=== PATIENT | male | born 1975 | race African-American/Black ===

== ENCOUNTER 2019-10-24 23:20 | Inpatient (IN) | payer MEDICAID ==
[~2019-10-24] VITALS: Ht 165.1 cm; Wt 81.6 kg
--- NOTE | 2019-10-24 23:35 | NUR ---
Patient BIB [facility] from home for c/o severe abdominal pain and nausea. Patient upon arrival vomiting, c/o genaralized weakness, abdominal pain and hyperventalating. A/Ox3 and states has had polyuria with frequent thirst and abdominal pain that started 3 days ago.
[2019-10-24] MEDS ORDERED: ONDANSETRON 4 MG/2 ML VIAL IV ONE (23:45)
[2019-10-24] MEDS ORDERED: ONDANSETRON 4 MG/2 ML VIAL ONE (23:46)
[2019-10-24 23:48] LABS: BASOPHILS # (AUTO) 0.1 K/uL (0.0-8.0); EOSINOPHILS % (AUTO) 0.2 % (0.0-7.0); HEMOGLOBIN 19.4 g/dL (12.5-16.3); LYMPHOCYTES # (AUTO) 1.4 K/uL (20.0-40.0)
[2019-10-24] MEDS ORDERED: METF-494 PO (23:50)
[2019-10-24] MEDS ORDERED: ATOR10TA PO (23:50)
[2019-10-24 23:51] LABS: ABG BASE EXCESS -18.2 mmol/L; ABG HCO3 5.2 mmol/L; ABG PCO2 12.4 mmHg (35.0-45.0); ABG PH 7.242 (7.350-7.450); ABG PO2 104.4 mmHg (75.0-100.0); ABG SITE RIGHT RADIAL; ABG TOTAL HEMOGLOBIN 20.1 G/dL (13.5-18.0); COHb 0.2 % (0.5-1.5); MetHb 0.4 % (0.0-1.5); O2Hb 96.2 % (94.0-97.0); VENT MODE Room Air
--- NOTE | 2019-10-24 23:57 | NUR ---
Patient out of unit for ct scan via gurny.
[2019-10-24 23:58] LABS: MEAN CORPUSCULAR HGB CONC 32 g/dL (32.5-36.3)
[2019-10-25] VITALS (15 sets, daily range): BP systolic 112–144; BP diastolic 63–92
[2019-10-25] LABS: HEMATOCRIT 60.4 % (36.7-47.1); LYMPHOCYTES % (AUTO) 13.3 % (20.5-51.5); MEAN CORPUSCULAR HEMOGLOBIN 29.1 uug (23.8-33.4); MEAN CORPUSCULAR VOLUME 90.6 fL (73.0-96.2); NEUTROPHILS % (AUTO) 80.9 % (38.5-71.5); PLATELET COUNT (AUTO) 383 K/uL (152-348); RED BLOOD CELL COUNT(AUTO) 6.67 MIL/uL (4.06-5.63); WHITE BLOOD COUNT (AUTO) 10.7 K/uL (3.6-10.2)
[2019-10-25 00:01] LABS: BASOPHILS % (AUTO) 0.7 % (0.0-2.0); MONOCYTES # (AUTO) 0.5 K/uL (2.0-10.0); MONOCYTES % (AUTO) 4.9 % (0.0-11.0); NEUTROPHILS # (AUTO) 8.6 K/uL (1.8-8.9)
--- NOTE | 2019-10-25 00:07 | NUR ---
Patient back from ct scan with no distress noted.
[2019-10-25 00:11] LABS: BILIRUBIN,DIRECT 0.1 mg/dL (0.0-0.2); BILIRUBIN,TOTAL 0.6 mg/dL (0.2-1.0); POTASSIUM 4.6 mmol/L (3.5-5.1); TOTAL PROTEIN, SERUM 10.2 g/dL (6.4-8.2)
[2019-10-25 00:15] LABS: PHOSPHOROUS 9.7 mg/dL (2.5-4.9)
[2019-10-25] MEDS ORDERED: IV 0.9% SODIUM CHLORID+ 20 KCL 1,000 ML IV PRN (00:26)
[2019-10-25 00:48] LABS: *BLOOD, URINE 2+ (NEGATIVE); *CLARITY,URINE CLEAR (CLEAR); *COLOR,URINE YELLOW (YELLOW); *KETONES,URINE 3+ (NEGATIVE); *UROBILINOGEN,URINE 0.2 E.U./dl (NORMAL); LEUKOCYTE ESTERASE ,URINE NEGATIVE (NEGATIVE); NITRITE, URINE NEGATIVE (NEGATIVE)
[2019-10-25 00:52] LABS: *BILIRUBIN,URIN 1+ (NEGATIVE); UGLUCOSE 2+ (NEGATIVE)
[2019-10-25 00:55] LABS: LYMPHOCYTES % (MANUAL) 15 % (20-40); MONOCYTES % (MANUAL) 5 % (2-10); NEUTROPHILS % (MANUAL) 80 % (42-75)
[2019-10-25 00:59] LABS: BACTERIA,URINE FEW /HPF (NONE SEEN); SQUAMOUS EPITHELIAL CELL,UR FEW /HPF (NONE SEEN); WBC,URINE 0-3 /HPF (0-3)
[2019-10-25 01:14] LABS: CREATININE 2.7 mg/dL (0.6-1.3); POTASSIUM 5.1 mmol/L (3.5-5.1)
--- NOTE | 2019-10-25 01:20 | NUR ---
DR DAVID SPEAKING WITH [facility] DIRECTOR FIELD SERVICES AMY BLAND NP.
[2019-10-25] MEDS ORDERED: MAGNESIUM HYDROXIDE 30 ML LIQUID UDC PO PRN ×2 (01:30→09:15)
[2019-10-25] MEDS ORDERED: HYDROCODONE/APAP 5-325MG TABLET PO PRN (01:30)
[2019-10-25] MEDS ORDERED: ONDANSETRON 4 MG/2 ML VIAL IV PRN (01:30)
[2019-10-25] MEDS ORDERED: ACETAMINOPHEN 325 MG TABLET PO PRN (01:30)
[2019-10-25] MEDS ORDERED: Z GUARD REMEDY PASTE 57 GM TUBE TOP PRN (01:30)
[2019-10-25] MEDS ORDERED: INSULIN REGULAR, HUMAN 300 UNIT/3 ML VIAL ONE (01:31)
--- NOTE | 2019-10-25 01:50 | NUR ---
MIXED 100 UNITS OF HUMULIN R INSULING INTO 100ML OF NS FOR INSULING DRIP. CO CHECKED DOSE WITH BABITA CONRAD.
[2019-10-25] MEDS ORDERED: INSULIN REGULAR, HUMAN 100 UNITS in IV NORMAL SALINE 100 ML IV ONE ×2 (02:00)
--- NOTE | 2019-10-25 02:00 | NUR ---
No nurse available in the CCU unit at this time. Patient will be admitted at change of shift at 0700 per warehouse shipping clerk
--- NOTE | 2019-10-25 02:00 | NUR ---
Started insulin drip at 8units/hr as ordered by Dr Munoz.
--- NOTE | 2019-10-25 02:04 | NUR ---
STARTED INSULIN DRIP AT 8UNITS/HR PER DKA PROTOCOL. CO CHECKED DRIP WITH BABITA CONRAD.
[2019-10-25 02:56] LABS: CREATININE 2.5 mg/dL (0.6-1.3); MAGNESIUM 2.8 mg/dL (1.8-2.4); PHOSPHOROUS 7.5 mg/dL (2.5-4.9); POTASSIUM 5.4 mmol/L (3.5-5.1)
[2019-10-25] MEDS ORDERED: IV NORMAL SALINE 1000 ML BAG IV ONE ×2 (03:00→04:30)
--- NOTE | 2019-10-25 03:10 | NUR ---
INFORMED DR DAVID OF [facility] READING HI. ORDERS RECIEVED AND CARRIED OUT.
--- NOTE | 2019-10-25 03:11 | NUR ---
INSULIN DRIP WILL REMAIN AT 8UNITS/HR PER DR FRANKIE MENESES
[2019-10-25] MEDS ORDERED: INSULIN REGULAR, HUMAN 10 UNIT in IV NORMAL SALINE 100 ML IV ONE ×2 (03:30)
[2019-10-25 03:57] LABS: ABG BASE EXCESS -17.7 mmol/L; ABG HCO3 5.5 mmol/L; ABG PCO2 12.5 mmHg (35.0-45.0); ABG PO2 101.4 mmHg (75.0-100.0); ABG SITE LEFT RADIAL; ABG TOTAL HEMOGLOBIN 19.1 G/dL (13.5-18.0); COHb 0.2 % (0.5-1.5); MetHb 0.4 % (0.0-1.5); O2Hb 96.4 % (94.0-97.0); VENT MODE Room Air
[2019-10-25 04:45] LABS: CREATININE 2.3 mg/dL (0.6-1.3); MAGNESIUM 2.6 mg/dL (1.8-2.4); PHOSPHOROUS 4.1 mg/dL (2.5-4.9); POTASSIUM 4.8 mmol/L (3.5-5.1)
--- NOTE | 2019-10-25 06:02 | NUR ---
Patient Blood Sugar is 457 via Accu check. Insulin drip lowered to 5units/HR, co check with Carrillo CONRAD.
[2019-10-25 07:15] LABS: POTASSIUM 5.2 mmol/L (3.5-5.1)
[2019-10-25 07:19] LABS: MAGNESIUM 2.6 mg/dL (1.8-2.4); PHOSPHOROUS 2.2 mg/dL (2.5-4.9)
--- NOTE | 2019-10-25 07:38 | NUR ---
transfered pt to floor in stable condition.
[2019-10-25] MEDS: PANTOPRAZOLE SODIUM 40 MG VIAL IV SCH (08:45)
[2019-10-25] MEDS: IV NS 1000 ML 1,000 ML IV PRN ×2 (08:45→17:09)
[2019-10-25] MEDS: INSULIN REGULAR, HUMAN 100 UNIT in IV NORMAL SALINE 99 ML IV PRN ×6 (09:04→20:40)
[2019-10-25] MEDS: BLOOD SUGAR DIAGNOSTIC 1 EACH STRIP VI SCH ×15 (09:14→23:28)
--- NOTE | 2019-10-25 18:48 | NUR ---
Attending physician, in the unit to see and examine patient,. full report given orders to start pt. on CCHO diet and continue with insulin drip.
--- NOTE | 2019-10-25 19:10 | NUR ---
received patient awake , oriented , on insulin drip at 2units , fs every 1 hour , on RA, continent using urinal , iv right arm 20 ga , intact
[2019-10-26] VITALS (23 sets, daily range): BP systolic 114–173; BP diastolic 48–131
--- NOTE | 2019-10-26 | NUR ---
awake , oriented , able to follow commnad , denies distress , no n//v noted
[2019-10-26] MEDS: BLOOD SUGAR DIAGNOSTIC 1 EACH STRIP VI SCH ×17 (00:28→21:00)
[2019-10-26] MEDS: INSULIN REGULAR, HUMAN 100 UNIT in IV NORMAL SALINE 99 ML IV PRN ×4 (01:49→09:30)
[2019-10-26] MEDS: IV NS 1000 ML 1,000 ML IV PRN (03:32)
[2019-10-26 05:27] LABS: BASOPHILS # (AUTO) 0.1 K/uL (0.0-8.0); BASOPHILS % (AUTO) 1.1 % (0.0-2.0); EOSINOPHILS % (AUTO) 0.2 % (0.0-7.0); HEMATOCRIT 52.3 % (36.7-47.1); HEMOGLOBIN 17.4 g/dL (12.5-16.3); LYMPHOCYTES # (AUTO) 2.3 K/uL (20.0-40.0); LYMPHOCYTES % (AUTO) 23.7 % (20.5-51.5); MEAN CORPUSCULAR HEMOGLOBIN 28.9 uug (23.8-33.4); MEAN CORPUSCULAR HGB CONC 33 g/dL (32.5-36.3); MEAN CORPUSCULAR VOLUME 86.8 fL (73.0-96.2); MONOCYTES # (AUTO) 0.9 K/uL (2.0-10.0); MONOCYTES % (AUTO) 9.7 % (0.0-11.0); NEUTROPHILS # (AUTO) 6.3 K/uL (1.8-8.9); NEUTROPHILS % (AUTO) 65.3 % (38.5-71.5); PLATELET COUNT (AUTO) 317 K/uL (152-348); RED BLOOD CELL COUNT(AUTO) 6.02 MIL/uL (4.06-5.63); WHITE BLOOD COUNT (AUTO) 9.7 K/uL (3.6-10.2)
[2019-10-26 05:39] LABS: ALANINE AMINOTRANSFERASE 54 U/L (16-63); ALKALINE PHOSPHATASE 118 U/L (50-136); ASPARTATE AMINOTRANSFERASE 31 U/L (15-37); BILIRUBIN,DIRECT 0.1 mg/dL (0.0-0.2); BILIRUBIN,TOTAL 0.4 mg/dL (0.2-1.0); CARBON DIOXIDE 17 mmol/L (21-32); CHLORIDE 121 mmol/L (98-107); CHOLESTEROL 330 mg/dL (<200); CREATININE 1.7 mg/dL (0.6-1.3); HDL CHOLESTEROL 56 mg/dL (40-60); MAGNESIUM 2.4 mg/dL (1.8-2.4); PHOSPHOROUS 1.7 mg/dL (2.5-4.9); POTASSIUM 3.7 mmol/L (3.5-5.1); TOTAL PROTEIN, SERUM 8.5 g/dL (6.4-8.2); TRIGLYCERIDES 427 MG/DL (30-150); UREA NITROGEN, BLOOD 24 mg/dL (7-18)
[2019-10-26 05:59] LABS: GLUCOSE 357 mg/dL (74-106)
[2019-10-26] MEDS ORDERED: glipiZIDE 5 MG TABLET PO SCH (07:30)
[2019-10-26] MEDS ORDERED: POTASSIUM PHOSPHATE MM 15 MMOL in IV NORMAL SALINE 250 ML IV ONE (07:30)
--- NOTE | 2019-10-26 07:30 | NUR ---
Received report from shift supervisor melting nurse, patient on insulin drip and IVF running at 120cc/hr. Reported sodium and potassium levels to Dr. Melendez, received orders and placed to pharmacy. patient in bed awake and alert, no distress noted at this time, Sinus tachycardia on the monitor, room air saturation above 95%. Bed in low position, side rails upx2, call light in reach.
[2019-10-26] MEDS: PANTOPRAZOLE SODIUM 40 MG VIAL IV SCH (08:30)
[2019-10-26] MEDS: IV 1/2NS 1000 ML 1,000 ML IV PRN (09:03)
[2019-10-26] MEDS ORDERED: glipiZIDE 5 MG TABLET PO ONE (09:38)
[2019-10-26] MEDS: FAMOTIDINE 20 MG TABLET PO SCH (11:40)
[2019-10-26] MEDS ORDERED: NOREPINEPHRINE BITARTRATE 8 MG in IV NORMAL SALINE 242 ML IV PRN (12:00)
[2019-10-26] MEDS ORDERED: PROPOFOL 100 ML IV PRN (12:00)
[2019-10-26] MEDS: glipiZIDE 10 MG TABLET PO SCH (16:14)
[2019-10-26] MEDS ORDERED: DEXTROSE 50% 50 ML DISP.SYRIN IV PRN (16:15)
--- NOTE | 2019-10-26 16:30 | NUR ---
D/C insulin drip as ordered, Glucose checked and insulin injection given subcutaneously.
--- NOTE | 2019-10-26 16:55 | NUR ---
Reported elevated BP to Dr. Melendez, patient is having heated conversation with brother, informed him that he may need to take BP med if his BP remains elevated.
--- NOTE | 2019-10-26 18:22 | NUR ---
Patient cooperative with care, no distress noted at this time. Patient is maintained on 1/2 NS IVF running at 80cc/hr. Room air, Sinus to sinus tach on the monitor. Tolerating liquids and meals. Bed in low position, side rails up x2, Call light in reach.
--- NOTE | 2019-10-26 19:00 | NUR ---
patient is awake , able to follow command , no distress , on RA , IV RUNNING 1/2 AT 80 ML , uses urinal
[2019-10-26] MEDS: ATORVASTATIN 40 MG TABLET PO SCH (20:26)
[2019-10-26] MEDS: EZETIMIBE 10 MG TABLET PO SCH (20:26)
[2019-10-26] MEDS: MUPIROCIN 2% OINT 22 GM TUBE NS SCH (21:00)
--- NOTE | 2019-10-26 21:00 | NUR ---
mahin from [facility] , called for covid results negative but postive for mrsa both nares
[2019-10-27] VITALS (11 sets, daily range): BP systolic 115–156; BP diastolic 57–105
--- NOTE | 2019-10-27 00:55 | NUR ---
patient lab levels being monitored , currently on 04/26 ns 80 ml , phosphate give 7/3 once Addendum: 10/27/19 at 0055 by RICHARD DEAL RN Amended: Wily added. Addendum: 10/27/19 at 0056 randy DEAL RN Amended: Wily romeo. Addendum: 10/27/19 at 0057 randy DEAL RN Amended: Links added. Addendum: 10/27/19 at 0057 by RICHARD DEAL RN Amended: Links added.
--- NOTE | 2019-10-27 00:56 | NUR ---
insulin drip was dc's , was placed on aggresive ac and hs insulin coverage , will be able to maintain bs level at acceptable , during hospitalization Addendum: 10/27/19 at 0056 by RICHARD DEAL RN Amended: Links added. Addendum: 10/27/19 at 7 by RICHARD DEAL RN Amended: Links added. Addendum: 10/27/19 at 7 by RICHARD DEAL RN Amended: Links added.
--- NOTE | 2019-10-27 00:57 | NUR ---
will maintain slowly back of appetite and will eat more 50 % of meal Addendum: 10/27/19 at 0057 by RICHARD DEAL RN Amended: Links added. Addendum: 10/27/19 at 0057 by RICHARD DEAL RN Amended: Links added.
[2019-10-27] MEDS: IV 1/2NS 1000 ML 1,000 ML IV PRN ×3 (01:10→20:29)
[2019-10-27] MEDS: INSULIN REGULAR, HUMAN 300 UNITS/3 ML VIAL SQ PRN ×2 (01:10→07:01)
[2019-10-27 05:35] LABS: BASOPHILS # (AUTO) 0.1 K/uL (0.0-8.0); BASOPHILS % (AUTO) 1.3 % (0.0-2.0); EOSINOPHILS # (AUTO) 0.1 K/uL (0.0-0.7); EOSINOPHILS % (AUTO) 1.7 % (0.0-7.0); HEMOGLOBIN 15.7 g/dL (12.5-16.3); LYMPHOCYTES # (AUTO) 2.8 K/uL (20.0-40.0); LYMPHOCYTES % (AUTO) 36.1 % (20.5-51.5); MEAN CORPUSCULAR HEMOGLOBIN 28.9 uug (23.8-33.4); MEAN CORPUSCULAR HGB CONC 33 g/dL (32.5-36.3); MEAN CORPUSCULAR VOLUME 86.4 fL (73.0-96.2); MONOCYTES # (AUTO) 0.7 K/uL (2.0-10.0); MONOCYTES % (AUTO) 9.2 % (0.0-11.0); NEUTROPHILS % (AUTO) 51.7 % (38.5-71.5); PLATELET COUNT (AUTO) 273 K/uL (152-348); RED BLOOD CELL COUNT(AUTO) 5.44 MIL/uL (4.06-5.63); WHITE BLOOD COUNT (AUTO) 7.7 K/uL (3.6-10.2)
[2019-10-27 05:48] LABS: CREATININE 1.6 mg/dL (0.6-1.3); MAGNESIUM 1.9 mg/dL (1.8-2.4); POTASSIUM 3.8 mmol/L (3.5-5.1)
--- NOTE | 2019-10-27 05:49 | NUR ---
report given to Will RN , patient history , diagnosis , medications given and radiology results
--- NOTE | 2019-10-27 06:00 | NUR ---
ANTOINE Rollins , BREAKER OILER WAS CALLED FOR TRANSFER ORDER , RECEIVED ORDER TO FOLLOW UP WITH DR HUNTER
--- NOTE | 2019-10-27 06:30 | NUR ---
MD AWARE OF BLOOD SUGAR RESULTS
--- NOTE | 2019-10-27 06:30 | NUR ---
DR HUNTER WAS CALLED WAITING FOR CALL BACK , INTERIOR DESIGN PROFESSIONAL AWARE
--- NOTE | 2019-10-27 06:54 | NUR ---
AWAKE ORIENTED , DENIES DISTRESS , ON RA , IV 1/2 NS RUNNING AT LEFT FOREARM INTACT AT 80 ML
[2019-10-27] MEDS: BLOOD SUGAR DIAGNOSTIC 1 EACH STRIP VI SCH ×4 (06:59→20:31)
--- NOTE | 2019-10-27 07:30 | NUR ---
RECEIVED PATIENT BY W/CHAIR TRANSFER FROM CCU TO ROOM 304 PLACED INTO BED FIXED AND MADE COMFORTABLE PATIENT IS ALERT AND ORIENTED DENIES PAIN OR DISCOMFORTS AT THIS TIME ORIENTED TO ROOM AND UNIT PROTOCOL CALL LIGHTS AND PERSONAL BELONGINGS ARE WITHIN EASY REACH MADE COMFORTABLE WILL CONTINUE TO OBSERVE.
[2019-10-27] MEDS: ASPIRIN EC 81 MG TABLET.DR PO SCH (08:13)
[2019-10-27] MEDS: FAMOTIDINE 20 MG TABLET PO SCH (08:13)
[2019-10-27] MEDS: glipiZIDE 10 MG TABLET PO SCH ×2 (08:13→16:49)
[2019-10-27] MEDS: MUPIROCIN 2% OINT 22 GM TUBE NS SCH ×2 (08:15→20:38)
--- NOTE | 2019-10-27 11:43 | NUR ---
PATIENT IS RESTING IN ROOM BLOOD SUGAR CHECKED AND DOCUMENTED WILL COVER PER SLING SCALE NO S/S OF HYPERGLYCEMIC REACTIONS AT THIS TIME IVF IN PROGRESS ORDERED WILL CONTINUE TO OBSERVE.
[2019-10-27] MEDS: INSULIN REGULAR, HUMAN 300 UNIT/3 ML VIAL SQ PRN ×3 (12:01→20:30)
[2019-10-27] MEDS ORDERED: NEUTRA PHOS PACKET PO ONE (15:15)
--- NOTE | 2019-10-27 15:23 | NUR ---
PHOS LEVEL IS 2.0 WITH REPLACEMENT ORDERS AND NOTED
[2019-10-27] MEDS: REPAGLINIDE 1 MG TABLET PO SCH (16:50)
[2019-10-27] MEDS: METFORMIN HCL 500 MG TABLET PO SCH (17:03)
--- NOTE | 2019-10-27 17:42 | NUR ---
RESTING BLOOD SUGAR REMAINS ELEVATED MEDICATIONS AND INSULIN GIVEN ORDERED WILL CONTINUE TO OBSERVE.
[2019-10-27] MEDS: EZETIMIBE 10 MG TABLET PO SCH (20:29)
[2019-10-27] MEDS: ATORVASTATIN 40 MG TABLET PO SCH (20:29)
--- NOTE | 2019-10-27 21:40 | NUR ---
dr. lopez gave orders for patient to take shower and take off tele monitor temporarily.
--- NOTE | 2019-10-27 21:54 | NUR ---
patient took a shower. stable currently. back on tele monitor.
[2019-10-28 01:23] VITALS: BP 143/90
[2019-10-28 05:44] VITALS: BP 126/85
--- NOTE | 2019-10-28 06:24 | NUR ---
patient slept intermittently throughout the night. AAOX3. no s/s of acute distress noted. v/s stable. NSR on tele monitor at 80/min. LFA PIV remain patent and intact. IVF infusing. compliant with all medications. on RA sat at 98%. all needs met. safety measures met and call light within reach. skin intact. denies any pain or discomfort. will continue to monitor and assess.
[2019-10-28] MEDS: glipiZIDE 10 MG TABLET PO SCH ×2 (06:30→17:37)
[2019-10-28] MEDS: BLOOD SUGAR DIAGNOSTIC 1 EACH STRIP VI SCH ×4 (06:32→21:19)
--- NOTE | 2019-10-28 08:00 | NUR ---
Pt is in no acute distress. PT alert and oriented. Pt denies any c/o pain. Reinforce diabetic teaching re importance of having good blood sugar level. Pt actively listening and engaged with conversation and asking lots of questions. PT not educated about diabetic diet. Will notify MD re pt's need for RD diabetic food teaching. Call light is within reach.
[2019-10-28] MEDS: REPAGLINIDE 1 MG TABLET PO SCH ×3 (08:44→17:37)
[2019-10-28] MEDS: ASPIRIN EC 81 MG TABLET.DR PO SCH (08:44)
[2019-10-28] MEDS: FAMOTIDINE 20 MG TABLET PO SCH (08:44)
[2019-10-28] MEDS: METFORMIN HCL 500 MG TABLET PO SCH ×2 (08:44→17:37)
[2019-10-28] MEDS: MUPIROCIN 2% OINT 22 GM TUBE NS SCH ×2 (08:45→21:18)
[2019-10-28] MEDS: INSULIN REGULAR, HUMAN 300 UNIT/3 ML VIAL SQ PRN ×3 (08:46→17:38)
[2019-10-28 09:23] LABS: CREATININE 1.2 mg/dL (0.6-1.3); PHOSPHOROUS 3.2 mg/dL (2.5-4.9); POTASSIUM 3.5 mmol/L (3.5-5.1)
[2019-10-28] MEDS: IV 1/2NS 1000 ML 1,000 ML IV PRN ×2 (10:11→21:28)
[2019-10-28 12:00] VITALS: BP 118/69
[2019-10-28] MEDS ORDERED: POTASSIUM CHLORIDE 20 MEQ TAB.PRT.SR PO ONE (12:30)
[2019-10-28 16:00] VITALS: BP 108/69
--- NOTE | 2019-10-28 18:41 | NUR ---
DR lopez notified of BS of 233. New order received for Dietary Eval for Diabetic food teaching. Call light is within reach.
[2019-10-28 21:10] VITALS: BP 113/75
[2019-10-28] MEDS: EZETIMIBE 10 MG TABLET PO SCH (21:17)
[2019-10-28] MEDS: ATORVASTATIN 40 MG TABLET PO SCH (21:17)
[2019-10-29 06:00] VITALS: BP 134/83
--- NOTE | 2019-10-29 06:12 | NUR ---
patient AAOX3. no s/s of acute distress. v/s stable. d/c telemetry yesterday night. BRP without assistance. safety precautions in place. all medication administered without ASE. will continue to monitor and assess.
[2019-10-29] MEDS: glipiZIDE 10 MG TABLET PO SCH (06:30)
[2019-10-29] MEDS: BLOOD SUGAR DIAGNOSTIC 1 EACH STRIP VI SCH ×2 (06:34→11:56)
--- NOTE | 2019-10-29 08:00 | NUR ---
Pt is in no acute distress. Pt alert and oriented x 4. Diabetic instruction of proper placement of lancet on finger and rotations. Went over signs and symptoms of hyper and hypo glycemia. Pt active at learning. Call light is within reach.
[2019-10-29] MEDS: ASPIRIN EC 81 MG TABLET.DR PO SCH (08:26)
[2019-10-29] MEDS: REPAGLINIDE 1 MG TABLET PO SCH ×2 (08:26→12:02)
[2019-10-29] MEDS: METFORMIN HCL 500 MG TABLET PO SCH (08:26)
[2019-10-29] MEDS: MUPIROCIN 2% OINT 22 GM TUBE NS SCH (08:27)
[2019-10-29] MEDS: INSULIN REGULAR, HUMAN 300 UNIT/3 ML VIAL SQ PRN ×2 (08:30→11:57)
[2019-10-29] MEDS ORDERED: FAMOTIDINE 20 MG TABLET PO SCH (09:00)
[2019-10-29 11:30] VITALS: BP 123/71
[2019-10-29] MEDS: IV 1/2NS 1000 ML 1,000 ML IV PRN (12:00)
[2019-10-29] MEDS ORDERED: LISI2.5T2 PO (13:48)
[2019-10-29] MEDS ORDERED: FAMO-132 PO (13:48)
[2019-10-29] MEDS ORDERED: ATOR40TA PO (13:48)
[2019-10-29] MEDS ORDERED: GLIP10TA11 PO (13:48)
[2019-10-29] MEDS ORDERED: METF-440 PO (13:48)
[2019-10-29] MEDS ORDERED: REPA2TAB PO (13:48)
[2019-10-29] MEDS ORDERED: ASPI-618 PO (13:48)
[2019-10-29 15:52] VITALS: BP 128/84
--- NOTE | 2019-10-29 16:00 | NUR ---
Discharge instructions given to PT. Pt verbalized understanding. Diabetic instructions given. PT verbalized understanding. Pt able to give s/s of hypoglycemia and hyperglycemia. Diabetic teaching on diet provided by Dietitian. E prescription sent to pts pharmacy. Pt instructed to establish primary doctor care. Pt verbalized understanding. RX for lancet, glucometer and equipment given to patient. IV d/c. Pt is in no acute distress upon discharge.
== END 2019-10-29 15:50 | disposition home or self-care (01) | DRG 420 ==
LOC: ER 23:25 → CCU 10-25 07:33 → TELE3 10-27 07:41 → MEDSURG3 10-28 21:25
PROVIDERS: ADMIT Internal Medicine; ATTEND Internal Medicine
DX: E11.10 Type 2 diabetes mellitus with ketoacidosis without coma (principal); N17.0 Acute kidney failure with tubular necrosis; E66.9 Obesity, unspecified; Z68.30 Body mass index [BMI] 30.0-30.9, adult; E86.0 Dehydration; Z91.19 Patient's noncompliance with other medical treatment and regimen; Z87.891 Personal history of nicotine dependence; K76.0 Fatty (change of) liver, not elsewhere classified; E83.52 Hypercalcemia; Z79.84 Long term (current) use of oral hypoglycemic drugs; E11.65 Type 2 diabetes mellitus with hyperglycemia; E83.39 Other disorders of phosphorus metabolism; E83.41 Hypermagnesemia
CPT/HCPCS: 36415; 36600; 51702; 70030-TC; 71045; 83605; 83690; 83735; 84100; 85025; 87040; 93005; A4663; C9113; G0378; J1815; J2405; J3490; J7030; J7050; U0003-CS